=== PATIENT | male | born 1985 | race Caucasian/White ===

== ENCOUNTER 2023-05-29 11:34 | Emergency (ER) | payer MEDICAID ==
[~2023-05-29] VITALS: Ht 172.7 cm; Wt 81.6 kg
[2023-05-29 12:42] VITALS: BP 151/114; PULSE 122; RESP 22; TEMP 97; O2SAT 96
[2023-05-29 14:04] LABS: BASOPHILS # (AUTO) 0.1 K/uL (0.00-0.22); BASOPHILS % (AUTO) 1.2 % (0.0-2.0); EOSINOPHILS % (AUTO) 0.5 % (0.0-4.0); HEMATOCRIT 47.3 % (36-52); HEMOGLOBIN 15.8 g/dL (12.0-18.0); LYMPHOCYTES # (AUTO) 1.2 K/uL (2.0-11.5); LYMPHOCYTES % (AUTO) 16.1 % (20.5-51.1); MEAN CORPUSCULAR HEMOGLOBIN 30 pg (27-31); MEAN CORPUSCULAR HGB CONC 34 g/dL (33-37); MEAN CORPUSCULAR VOLUME 89.3 fL (80-94); MONOCYTES # (AUTO) 0.5 K/uL (0.8-1.0); MONOCYTES % (AUTO) 6.9 % (1.7-9.3); NEUTROPHILS # (AUTO) 5.7 K/uL (1.8-7.7); NEUTROPHILS % (AUTO) 75.3 % (42.2-75.2); PLATELET COUNT (AUTO) 245 K/uL (140-450); WHITE BLOOD COUNT (AUTO) 7.6 K/uL (4.8-10.8)
[2023-05-29] MEDS ORDERED: NAPR-1704 PO (14:24)
== END 2023-05-29 14:30 | disposition home or self-care (01) ==
LOC: MED 11:34
DX: M79.672 Pain in left foot (principal); R22.42 Localized swelling, mass and lump, left lower limb; Z79.1 Long term (current) use of non-steroidal anti-inflammatories (NSAID)
CPT/HCPCS: 36415; 73630; 84550; 85025; 85651; 99284